=== PATIENT | female | born 1990 | race Caucasian/White ===

== ENCOUNTER 2016-10-25 14:15 | Emergency (ER) | payer OTHER ==
[~2016-10-25] VITALS: Ht 170.2 cm; Wt 110.0 kg
[2016-10-25] MEDS ORDERED: ALPR.5 PO (14:24)
[2016-10-25] MEDS ORDERED: OMEP40CA2 PO (14:24)
[2016-10-25] MEDS ORDERED: CELE20TA PO (14:24)
[2016-10-25] MEDS ORDERED: LORazepam 2 MG/ML VIAL IV ONE (15:00)
[2016-10-25 15:24] VITALS: BP 141/83; PULSE 81; RESP 17; TEMP 97.7; O2SAT 99
[2016-10-25 16:10] LABS: AUTOMATED NEUTROPHIL # 11.2 TH/MM3 (1.8-7.7); BASOPHIL # 0.1 TH/MM3 (0-0.2); BASOPHIL % 0.5 % (0.0-2.0); EOSINOPHIL # 0.3 TH/MM3 (0-0.4); EOSINOPHIL % 1.9 % (0.0-4.0); HEMATOCRIT 40.4 % (35.0-46.0); HEMO FLAGS DIFF FINAL; LYMPH % 18.1 % (9.0-44.0); LYMPHOCYTE # 2.8 TH/MM3 (1.0-4.8); MEAN CELL VOLUME 83.9 FL (80.0-100.0); MEAN CORPUSCULAR HEMOGLOBIN 27.5 PG (27.0-34.0); MEAN CORPUSCULAR HGB CONC 32.8 % (32.0-36.0); MONO % 5.8 % (0.0-8.0); NEUT % 73.7 % (16.0-70.0); PLATELET COUNT 445 TH/MM3 (150-450); RED BLOOD COUNT 4.81 MIL/MM3 (4.00-5.30); RED CELL DISTRIBUTION WIDTH 13.6 % (11.6-17.2); WHITE BLOOD COUNT 15.3 TH/MM3 (4.0-11.0)
[2016-10-25 16:14] LABS: AMPHETAMINE, URINE NEG (NEG); BARBITURATES, URINE NEG (NEG); COCAINE, URINE NEG (NEG)
[2016-10-25 16:31] LABS: ANION GAP 7 MEQ/L (5-15); AST (GOT) 20 U/L (15-37); BICARBONATE 26.6 MEQ/L (21.0-32.0); BLOOD UREA NITROGEN 11 MG/DL (7-18); CHLORIDE 106 MEQ/L (98-107); GLOMERULAR FILTRATION RATE 84 ML/MIN (>89); POTASSIUM 3.7 MEQ/L (3.5-5.1); SODIUM (NA) 140 MEQ/L (136-145)
[2016-10-25 16:34] LABS: ALKALINE PHOSPHATASE 84 U/L (45-117); ALT (GPT) 43 U/L (10-53); TOTAL BILIRUBIN ADULT 0.3 MG/DL (0.2-1.0)
[2016-10-25] MEDS ORDERED: PROZ20CA11 PO (18:22)
[2016-10-25] MEDS ORDERED: LORA-474 PO (18:23)
[2016-10-25] MEDS ORDERED: ZANT150T2 PO (18:24)
--- NOTE | 2016-10-25 18:42 | PD ---
History of Present Illness Chief Complaint: Anxiety Time Seen by Provider: 18:30 Travel History International Travel<30 Days: No Contact w/Intl Traveler<30days: No Known affected area: No History of Present Illness: Week until she returns to see this physician 26-year-old female with anxiety and depression, stemming from stress at work. Patient is having suicidal ideation and multiple symptoms of depression. This physician is changing her medications to Prozac and Ativan from Celexa and Xanax. She was also given a prescription for Zantac. She will be returning to see this physician in one week's time. Her family was present for the discussion and all agreed this would be the best course of action. They agreed not to leave her alone during this time period. Symptoms of depression include depressed mood, anhedonia, extreme anxiety, social withdrawal, diminished energy and diminished motivation , feelings of helplessness and hopelessness, initial and middle insomnia, and loss of concentration. She feels her depression and suicidal ideation are the result of a coworker who is autistic and constantly bothering her. This physician offered psychiatric hospitalization because of the patient's suicidal thinking but the patient prefers to continue as an outpatient and the family is willing to supervise her for the next week, until she sees this physician again PFS Past Medical History Anxiety: Yes GERD: Yes Psychiatric: Yes (SOCIAL ANXIETY DISORDER) ?: Not LMP: 09/28/16 Past Surgical History Surgical History: No Previous Surgery Psychiatric History Psychiatric History Hx Psychiatric Treatment: Patient has been seen previously on an outpatient basis. No psychiatric hospitalizations. History of Inpatient Treatment: No Guns or firearms in home: No Social History Hx Alcohol Use: No Hx Tobacco Use: No Hx Substance Use: No Hx of Substance Use Treatment: No Allergies-Medications (Allergen,Severity, Reaction): Coded Allergies: Amoxicillin (Verified Allergy, Severe, Hives, 10/25/16) Bactrim (Verified Allergy, Severe, Itching , 10/25/16) Ceclor (Verified Allergy, Severe, Hives, 10/25/16) Reported Meds & Prescriptions Reported Meds & Active Scripts Active Zantac (Ranitidine HCl) 150 Mg Tab 150 Mg PO BID Ativan (Lorazepam) 1 Mg Tab 1 Mg PO Q8H PRN Prozac (Fluoxetine HCl) 20 Mg Cap 20 Mg PO DAILY Reported Celexa (Citalopram Hydrobromide) 20 Mg Tab 20 Mg PO DAILY Omeprazole 40 Mg Cap 40 Mg PO DAILY Xanax (Alprazolam) 0.5 Mg Tab 0.5 Mg PO BID PRN Review of Systems Except as stated in HPI: all other systems reviewed are Neg Exam Alert: Yes [place]: Person, Place, Date, Situation Mood: Depressed Affect: Appropriate Speech: Clear, Logical Eye Contact: Normal Memory Intact: Immediate, Recent, Remote Suicidal: Plan, Ideation Insight/Judgement Adequate MDM Medical Decision Making Medical Record Reviewed: Yes Assessment/Plan Although the patient continues to be significantly depressed with suicidal ideation, including overdose, because of her significant family support from mother, father and , as well as her desire to go home, this physician is willing to allow patient to leave with new medicines. Mother agreed the patient needs different medicines as she has not responded to the Xanax and Celexa. This physician shows Ativan for its long acting properties and Prozac 20 mg for its antidepressant and anti-anxiety properties. Extensive informed consent was given, including asking the family to bring the patient back for reevaluation and possible admission if she feels more suicidal. Patient was also given a note to allow her to stay off work for the next 4 days. This physician feels, despite the risk of not hospitalizing her, it would be better not to antagonize the patient at this time. Orders Complete Blood Count With Diff (10/25/16 14:49) Comprehensive Metabolic Panel (10/25/16 14:49) Psych Screen (10/25/16 14:49) Lorazepam Inj (Ativan Inj) (10/25/16 15:00) Drug Screen, Random Urine (10/25/16 14:49) Results Vital Signs Date Time Temp Pulse Resp B/P Pulse Ox O2 Delivery O2 Flow Rate FiO2 10/25/16 15:24 97.7 81 17 141/83 99 Laboratory Tests Test 10/25/16 15:25 White Blood Count 15.3 Red Blood Count 4.81 Hemoglobin 13.2 Hematocrit 40.4 Mean Corpuscular Volume 83.9 Mean Corpuscular Hemoglobin 27.5 Mean Corpuscular Hemoglobin 32.8 Concent Red Cell Distribution Width 13.6 Platelet Count 445 Mean Platelet Volume 8.1 Neutrophils (%) (Auto) 73.7 Lymphocytes (%) (Auto) 18.1 Monocytes (%) (Auto) 5.8 Eosinophils (%) (Auto) 1.9 Basophils (%) (Auto) 0.5 Neutrophils # (Auto) 11.2 Lymphocytes # (Auto) 2.8 Monocytes # (Auto) 0.9 Eosinophils # (Auto) 0.3 Basophils # (Auto) 0.1 CBC Comment DIFF FINAL Differential Comment Sodium Level 140 Potassium Level 3.7 Chloride Level 106 Carbon Dioxide Level 26.6 Anion Gap 7 Blood Urea Nitrogen 11 Creatinine 0.82 Estimat Glomerular Filtration 84 Rate Random Glucose 91 Calcium Level 9.3 Total Bilirubin 0.3 Aspartate Amino Transf 20 (AST/SGOT) Alanine Aminotransferase 43 (ALT/SGPT) Alkaline Phosphatase 84 Total Protein 7.9 Albumin 3.9 Urine Opiates Screen NEG Urine Barbiturates Screen NEG Urine Amphetamines Screen NEG Urine Benzodiazepines Screen POS Urine Cocaine Screen NEG Urine Cannabinoids Screen NEG Diagnosis Primary Impression: Adjustment disorder with mixed anxiety and depressed mood Prescriptions Ranitidine (Zantac)150 Mg [id number] Mg PO BID #60 TAB Ref 1 Prov:Phani So MD 10/25/16 Lorazepam (Ativan)1 Mg Tab1 Mg PO Q8H PRN (ANXIETY AND/OR AGITATION) #60 TAB Ref 0 Prov:Phani So MD 10/25/16 Fluoxetine (Prozac)20 Mg Cap20 Mg PO DAILY #30 CAP Ref 1 Prov:Phani So MD 10/25/16 Phani So MD Oct 25, 2016 18:42
--- NOTE | 2016-10-25 19:28 | PD ---
HPI Chief Complaint: Anxiety Time Seen by Provider: 14:19 Travel History International Travel<30 days: No Contact w/Intl Traveler<30days: No Traveled to known affect area: No History of Present Illness HPI This is a 26 year old female history depression, acute life stressors, questionable post traumatic stress, and presents here with complaints of feeling severely anxious and depressed and having suicidal thoughts. The patient has no true plan. She states she does not wish to hurt herself but has had thoughts. The patient has a lot of stress at work and states that she has become severely anxious with her work life balance. There are no other complaints time my examination. PFSH Past Medical History Anxiety: Yes GERD: Yes Psychiatric: Yes (SOCIAL ANXIETY DISORDER) ?: Not LMP: 09/28/16 Past Surgical History Surgical History: No Previous Surgery Social History Alcohol Use: No Tobacco Use: No Substance Use: No Allergies-Medications (Allergen,Severity, Reaction): Coded Allergies: Amoxicillin (Verified Allergy, Severe, Hives, 10/25/16) Bactrim (Verified Allergy, Severe, Itching , 10/25/16) Ceclor (Verified Allergy, Severe, Hives, 10/25/16) Reported Meds & Prescriptions Reported Meds & Active Scripts Active Zantac (Ranitidine HCl) 150 Mg Tab 150 Mg PO BID Ativan (Lorazepam) 1 Mg Tab 1 Mg PO Q8H PRN Prozac (Fluoxetine HCl) 20 Mg Cap 20 Mg PO DAILY Reported Celexa (Citalopram Hydrobromide) 20 Mg Tab 20 Mg PO DAILY Omeprazole 40 Mg Cap 40 Mg PO DAILY Xanax (Alprazolam) 0.5 Mg Tab 0.5 Mg PO BID PRN Review of Systems Except as stated in HPI: all other systems reviewed are Neg Eyes: No: Blurred Vision, Photophobia HENT: No: Headaches, Neck Pain Cardiovascular: No: Chest Pain or Discomfort, Palpitations Respiratory: No: Cough, Shortness of Breath Gastrointestinal: No: Nausea, Vomiting, Abdominal Pain Genitourinary: No: Dysuria, Incontinence Musculoskeletal: No: Weakness, Pain Psychiatric: Positive: Anxiety, Depression, Suicidal Ideations, No: Substance Abuse Physical Exam Narrative GENERAL: Well-nourished, well-developed patient. SKIN: Focused skin assessment warm/dry. HEAD: Normocephalic. EYES: No scleral icterus. No injection or drainage. NECK: Supple, trachea midline. No JVD or lymphadenopathy. CARDIOVASCULAR: Regular rate and rhythm without murmurs, gallops, or rubs. RESPIRATORY: Breath sounds equal bilaterally. No accessory muscle use. GASTROINTESTINAL: Abdomen soft, non-tender, nondistended. MUSCULOSKELETAL: No cyanosis, or edema. BACK: Nontender without obvious deformity. No CVA tenderness. Data Data Last Documented VS Vital Signs Date Time Temp Pulse Resp B/P Pulse Ox O2 Delivery O2 Flow Rate FiO2 10/25/16 15:24 97.7 81 17 141/83 99 Orders Complete Blood Count With Diff (10/25/16 14:49) Comprehensive Metabolic Panel (10/25/16 14:49) Psych Screen (10/25/16 14:49) Lorazepam Inj (Ativan Inj) (10/25/16 15:00) Drug Screen, Random Urine (10/25/16 14:49) Labs Laboratory Tests Test 10/25/16 15:25 White Blood Count 15.3 TH/MM3 Red Blood Count 4.81 MIL/MM3 Hemoglobin 13.2 GM/DL Hematocrit 40.4 % Mean Corpuscular Volume 83.9 FL Mean Corpuscular Hemoglobin 27.5 PG Mean Corpuscular Hemoglobin 32.8 % Concent Red Cell Distribution Width 13.6 % Platelet Count 445 TH/MM3 Mean Platelet Volume 8.1 FL Neutrophils (%) (Auto) 73.7 % Lymphocytes (%) (Auto) 18.1 % Monocytes (%) (Auto) 5.8 % Eosinophils (%) (Auto) 1.9 % Basophils (%) (Auto) 0.5 % Neutrophils # (Auto) 11.2 TH/MM3 Lymphocytes # (Auto) 2.8 TH/MM3 Monocytes # (Auto) 0.9 TH/MM3 Eosinophils # (Auto) 0.3 TH/MM3 Basophils # (Auto) 0.1 TH/MM3 CBC Comment DIFF FINAL Differential Comment Sodium Level 140 MEQ/L Potassium Level 3.7 MEQ/L Chloride Level 106 MEQ/L Carbon Dioxide Level 26.6 MEQ/L Anion Gap 7 MEQ/L Blood Urea Nitrogen 11 MG/DL Creatinine 0.82 MG/DL Estimat Glomerular Filtration 84 ML/MIN Rate Random Glucose 91 MG/DL Calcium Level 9.3 MG/DL Total Bilirubin 0.3 MG/DL Aspartate Amino Transf 20 U/L (AST/SGOT) Alanine Aminotransferase 43 U/L (ALT/SGPT) Alkaline Phosphatase 84 U/L Total Protein 7.9 GM/DL Albumin 3.9 GM/DL Urine Opiates Screen NEG Urine Barbiturates Screen NEG Urine Amphetamines Screen NEG Urine Benzodiazepines Screen POS Urine Cocaine Screen NEG Urine Cannabinoids Screen NEG MDM Medical Decision Making Medical Screen Exam Complete: Yes Emergency Medical Condition: Yes Differential Diagnosis Anxiety versus depression versus mood disorder Narrative Course 26-year-old female presents here with complaints of depression and suicidal ideation. Patient has acute life and work stressors. The patient is currently taking Celexa and Xanax. She states that despite these medications she still having these feelings. She's been seen and evaluated by Dr. Phani So, on- call psychiatrist, who is been gracious enough to see her and adjust her medication. She'll be taken off of her Celexa and Xanax and placed on Ativan and Prozac. She'll follow up with Dr. So an outpatient. Diagnosis Primary Impression: Depression Additional Impression: acute life stressors Additional Instructions: Stop Celexa and Xanax and start new medication. Med/Other Pt SpecificInfo: Prescription(s) given Scripts Ranitidine (Zantac)150 Mg [id number] Mg PO BID #60 TAB Ref 1 Prov:Phani So MD 10/25/16 Lorazepam (Ativan)1 Mg Tab1 Mg PO Q8H PRN (ANXIETY AND/OR AGITATION) #60 TAB Ref 0 Prov:Phani So MD 10/25/16 Fluoxetine (Prozac)20 Mg Cap20 Mg PO DAILY #30 CAP Ref 1 Prov:Phani So MD 10/25/16 Disposition: 01 DISCHARGE HOME Condition: Stable Antelmo Corrales MD Oct 25, 2016 19:28
[2016-11-10] MEDS ORDERED: LORA-474 PO (15:50)
[2016-11-10] MEDS ORDERED: PROZ20CA11 PO (15:50)
== END 2016-10-25 20:37 | disposition home or self-care (01) ==
LOC: NEPE 14:15
DX: F43.23 Adjustment disorder with mixed anxiety and depressed mood (principal); R45.851 Suicidal ideations
CPT/HCPCS: 80053; 80307; 85025; 96374; 99284; J2060